=== PATIENT | female | born 1985 | race Hispanic/Latino ===

== ENCOUNTER 2016-11-27 05:41 | Emergency (ER) | payer OTHER ==
[2016-11-27 06:11] VITALS: O2SAT 100
--- NOTE | 2016-11-27 06:19 | ED PDOC ---
Arrival/HPI - General Chief Complaint: Chest Pain Time Seen by Provider: 11/27/16 06:11 Historian: Patient - History of Present Illness Narrative History of Present Illness (Text): 11/27/16 06:17 Pt. to emergency department with complaint of occassional dry cough and chest discomfort when taking a deep breath.No shortness of breath.No fever or chills.States she was seen at an urgent care center earlier last week prescribed Prednisone and pulmicort.States she stopped taking the medication feeling it provoked her symptoms.Pt. is not on BCP.Denies drug use. Past Medical History - Provider Review Nursing Documentation Reviewed: Yes - Travel History Have you recently traveled outside [place] w/in the past 3 mons?: No - Psychiatric Hx Anxiety: Yes Hx Depression: Yes Hx Substance Use: No - Surgical History Hx Section: Yes Hx Cholecystectomy: Yes Family/Social History - Physician Review Nursing Documentation Reviewed: Yes Family/Social History: No Known Family HX Smoking Status: Never Smoked Hx Alcohol Use: No Hx Substance Use: No Allergies/Home Meds Allergies/Adverse Reactions: Allergies No Known Allergies Allergy (Verified 11/27/16 05:58) Home Medications: Home Meds Medication Instructions Recorded Confirmed ALPRAZolam [Xanax] 0.25 mg PO BID 11/27/16 11/27/16 Sertraline [Zoloft] 25 mg PO HS 11/27/16 11/27/16 Review of Systems - Review of Systems Constitutional: Normal Eyes: Normal ENT: Normal Respiratory: Cough Cardiovascular: Chest Pain Gastrointestinal: Normal Genitourinary Female: Normal Musculoskeletal: Normal Skin: Normal Neurological: Normal Endocrine: Normal Hemo/Lymphatic: Normal Psychiatric: Normal Physical Exam Vital Signs Temp Pulse Resp BP Pulse Ox 11/27/16 06:35 98.0 F 80 16 124/80 100 11/27/16 06:01 98.4 F 89 18 100 Temperature: Afebrile Blood Pressure: Normal Pulse: Regular Respiratory Rate: Normal Appearance: Positive for: Well-Appearing, Non-Toxic, Comfortable Pain Distress: None Mental Status: Positive for: Alert and Oriented X 3 - Systems Exam Head: Present: Atraumatic, Normocephalic Pupils: Present: PERRL Extroacular Muscles: Present: EOMI Conjunctiva: Present: Normal Ears: Present: NORMAL TM Mouth: Present: Moist Mucous Membranes Pharnyx: Present: Normal Neck: Present: Normal Range of Motion Respiratory/Chest: Present: Clear to Auscultation, Good Air Exchange. No: Respiratory Distress, Accessory Muscle Use Cardiovascular: Present: Regular Rate and Rhythm, Normal S1, S2. No: Murmurs Abdomen: Present: Normal Bowel Sounds. No: Tenderness, Distention, Peritoneal Signs Back: Present: Normal Inspection Upper Extremity: Present: Normal Inspection. No: Cyanosis, Edema Lower Extremity: Present: Normal Inspection. No: Edema Neurological: Present: GCS=15, CN II-XII Intact, Speech Normal Skin: Present: Warm, Dry, Normal Color. No: Rashes Psychiatric: Present: Alert, Oriented x 3, Normal Insight, Normal Concentration Medical Decision Making - RAD Interpretation Narrative RAD Interpretations (Text): 11/27/16 07:06 CXR -No acute process Radiology Orders: 11/27/16 06:23 CHEST TWO VIEWS (PA/LAT) [RAD] Stat Machine Stuffer: ED Physician - EKG Interpretation EKG Interpretation (Text): 11/27/16 07:06 EKG-NSR@ 75 sinus arrhythmia,no acute changes Interpreted by ED Physician: Yes Type: 12 lead EKG - Medication Orders Current Medication Orders: Azithromycin (Zithromax) 500 mg PO ONCE STA PRN Reason: Protocol Stop: 11/27/16 07:15 Ibuprofen (Motrin Tab) 600 mg PO STAT STA Stop: 11/27/16 07:16 Disposition/Present on Arrival - Present on Arrival Any Indicators Present on Arrival: No History of DVT/PE: No History of Uncontrolled Diabetes: No Urinary Catheter: No History of Decub. Ulcer: No History Surgical Site Infection Following: None - Disposition Have Diagnosis and Disposition been Completed?: No Diagnosis: Bronchitis Disposition: HOME/ ROUTINE Disposition Time: 07:11 Patient Plan: Discharge Condition: GOOD Discharge Instructions (ExitCare): Acute Bronchitis (ED) Additional Instructions: Take meds as prescribed/follow up with your doctor this week Prescriptions: Naproxen [Naprosyn] 500 mg PO BID PRN #12 tab PRN Reason: Pain Azithromycin [Zithromax] 250 mg PO DAILY #4 tab Forms: [employer] ([place])
[2016-11-27 06:36] VITALS: BP 124/80; PULSE 80; RESP 16; TEMP 98
--- NOTE | 2016-11-27 09:43 | CARD ---
APPROVED REPORT EKG Measurement Heart [id number] <Conclusion> Normal sinus rhythm with sinus arrhythmia Normal ECG
== END 2016-11-27 07:38 | disposition home or self-care (01) ==
LOC: ED 05:41
DX: J40 Bronchitis, not specified as acute or chronic (principal)